=== PATIENT | female | born 1960 | race Caucasian/White ===

== ENCOUNTER 2017-07-03 09:06 | Outpatient (CLI) | payer OTHER ==
--- NOTE | 2017-07-03 13:38 | MMO ---
BILATERAL SCREENING MAMMOGRAM: Date: 07/03/17 INDICATION: Annual exam. COMPARISON: The outside comparison films were unavailable. The films were requested from [place]; however, the patient reports that she is leaving the country for 1+ years in approximately 5 days. FINDINGS: Interpretation of this exam was assisted with computer-aided detection. The breast parenchyma is heterogeneously dense, which limits the sensitivity of mammography. No suspicious mass, cluster of microcalcifications, or area of architectural distortion is evident. IMPRESSION: BIRADS 1: Negative Recommend routine annual mammographic screening. POS: SUSAN
== END 2017-07-03 09:07 | disposition home or self-care (01) ==
LOC: SCSMAMMO 09:06
PROVIDERS: ATTEND Obstetrics & Gynecology
DX: Z12.31 Encounter for screening mammogram for malignant neoplasm of breast (principal)
CPT/HCPCS: 77067; G0202